=== PATIENT | female | born 1960 | race Caucasian/White ===

== ENCOUNTER → 2020-05-09 07:21 | Outpatient (CLI) | payer BC, SELFPAY ==
--- NOTE | ~2020-05-09 | MM_ITS ---
EXAMINATION: MM screening freddie BI w margaret HISTORY: Screening mammogram TECHNIQUE: Craniocaudal and mediolateral oblique 3-D tomosynthesis images were obtained and synthetic 2-D images were generated. CAD analysis was submitted and interpreted. COMPARISON: 03/28/2019, 03/07/2018, 02/10/2017 bilateral digital screening mammogram examinations BREAST PARENCHYMAL COMPOSITION: The breasts are heterogeneously dense, which may obscure small masses . FINDINGS: There is a biopsy marker on the right; history of prior benign right breast biopsy. Scattered bilateral benign calcifications. Stable circumscribed low-density 5 mm mass is again noted in the lower outer left breast. Stable approximately 9 mm opacity in the upper outer right breast. There is no evidence of suspicious mass, calcification, or architectural distortion to suggest malign zena in either breast. There has been no suspicious interval change. IMPRESSION: 1. No mammographic evidence of malignancy. 2. Recommend routine screening mammography in one year. BI-RADS Category 2: Benign finding(s). Reviewed, dictated and finalized at location B. [employer]
== END ==
PROVIDERS: Visit Provider Family Medicine
DX: Z12.31 Encounter for screening mammogram for malignant neoplasm of breast (principal)
CPT/HCPCS: 77063; 77067

== ENCOUNTER → 2021-07-24 07:12 | Outpatient (CLI) | payer BC, SELFPAY ==
--- NOTE | ~2021-07-24 | MM_ITS ---
EXAMINATION: MM screening freddie BI w magraret HISTORY: Screening mammogram TECHNIQUE: Craniocaudal and mediolateral oblique 3-D tomosynthesis images were obtained and synthetic 2-D images were generated. CAD analysis was submitted and interpreted. COMPARISON: 05/09/2020, 03/28/2019, 03/07/2018 and lateral screening mammogram examinations BREAST PARENCHYMAL COMPOSITION: The breasts are heterogeneously dense, which may obscure small masses . FINDINGS: Surgical clips in the posterior aspect of upper outer right breast; history of prior benign breast biopsy. Scattered bilateral benign calcifications. There is no evidence of suspicious mass, calcification, or architectural distortion to suggest malig rafita in either breast. There has been no suspicious interval change. IMPRESSION: 1. No mammographic evidence of malignancy. 2. Recommend routine screening mammography in one year. BI-RADS Category 2: Benign finding(s). Reviewed, dictated and finalized at location A.
== END ==
PROVIDERS: PCP Family Medicine; Visit Provider Family Medicine
DX: Z12.31 Encounter for screening mammogram for malignant neoplasm of breast (principal)
CPT/HCPCS: 77063; 77067

== ENCOUNTER → 2021-10-09 11:07 | Outpatient (REF) | payer BC, SELFPAY | LOC: ANHLAB 11:07 | PROVIDERS: PCP Family Medicine; Visit Provider Surgery Plastic and Reconstructive Surgery | DX: D23.9 Other benign neoplasm of skin, unspecified (principal) | CPT/HCPCS: 88305 ==

== ENCOUNTER → 2022-07-31 07:08 | Outpatient (CLI) | payer BC, SELFPAY ==
--- NOTE | ~2022-07-31 | MM_ITS ---
EXAMINATION: MM screening freddie BI w margaret HISTORY: Screening TECHNIQUE: Craniocaudal and mediolateral oblique 3-D tomosynthesis images were obtained and synthetic 2-D images were generated. CAD analysis was submitted and interpreted. COMPARISON: Comparison to multiple prior studies sequentially, with oldest reviewed study dated 07/2015. BREAST PARENCHYMAL COMPOSITION: The breasts are heterogeneously dense, which may obscure small masses FINDINGS: There are developing nodular asymmetries scattered in the left breast in the upper outer qu adrant of the right breast. There are scattered punctate calcifications which are likely benign. IMPRESSION: 1. Developing bilateral nodular asymmetries. 2. Additional mammographic views and possible breast ultrasound are recommended. BI-RADS Category 0: Incomplete: Needs additional imaging evaluation. Reviewed, dictated and finalized at location A. IMPRESSION: 1. Developing bilateral nodular asymmetries. 2. Additional mammographic views and possible breast ultrasound are recommended . BI-RADS Category 0: Incomplete: Needs additional imaging evaluation.
== END ==
PROVIDERS: PCP Family Medicine; Visit Provider Family Medicine
DX: Z12.31 Encounter for screening mammogram for malignant neoplasm of breast (principal); R92.8 Other abnormal and inconclusive findings on diagnostic imaging of breast
CPT/HCPCS: 77063; 77067

== ENCOUNTER → 2022-08-28 08:14 | Outpatient (CLI) | payer BC, SELFPAY ==
--- NOTE | ~2022-08-28 | MMUS_ITS ---
EXAMINATION: MM diagnostic freddie BI w margaret, US breast BI complete HISTORY: Developing bilateral nodular asymmetries reported on 07/31/2022 screening mammogram TECHNIQUE: Additional 3-D tomosynthesis images of both breasts were performed and synthetic 2-D image s were generated. CAD analysis was submitted and interpreted. High resolution bilateral complete nancy st ultrasound examination including all 4 quadrants and subareolar areas was performed. COMPARISON: 07/31/2022, 07/20/2021, 05/09/2020 bilateral screening mammogram examinations BREAST PARENCHYMAL COMPOSITION: The breasts are heterogeneously dense, which may obscure small masses . FINDINGS: MAMMOGRAPHIC FINDINGS: There is a biopsy marker on the right; history of prior benign right breast biopsy. Scattered bilateral benign calcifications are noted. 4 mm benign-appearing circumscribed opacity is noted in the posterior lower outer left breast. 9 mm circumscribed opacity is noted in the upper mid right breast on ML and MLO views. Heterogeneous fibrous stroma may obscure additional masses. ULTRASOUND: Right breast: 8:00 4 cm from nipple: 2.5 x 4.9 x 3.4 mm parallel circumscribed sonolucency with through transmissio n consistent with small cyst 10:00 7 cm from nipple: Parallel circumscribed approximately 3 x 10 mm 11:00 5 cm from nipple: 9 x 10 mm hypoechoic mass with posterior shadowing. Ultrasound-guided biopsy is recommended Left breast: 1:00 6 cm from nipple: Approximately 5 x 17 mm sonolucency with through transmission, benign in appea vasiliy 1:00 3 cm from nipple: Similar approximately 3 by 16mm parallel circumscribed sonolucency, without in ternal vascularity or posterior shadowing, benign in appearance 2:00 3 cm from nipple: 4.8 x 3 x 3.4 mm parallel circumscribed hypoechoic area with central fatty tis steven, possibly a benign intramammary lymph node IMPRESSION: 1. 10 mm right hypoechoic mass with posterior shadowing 2. Ultrasound-guided biopsy of right breast 11:00 lesion 5 cm from nipple is recommended BI-RADS category 4, suspicious findings. Dr. Garcia telephoned the report and ultrasound-guided biopsy recommendation of the right 11:00 lesion on 08/20/2022 at 0955 hours to Nurse Luz Reviewed, dictated and finalized at location A. IMPRESSION: 1. 10 mm right hypoechoic mass with posterior shadowing 2. Ultrasound-guided biopsy of right breast 11:00 lesion 5 cm from nipple is re commended BI-RADS category [address], [address] Garcia telephoned the report and ultrasound-guided biopsy recommendation of t vic right 11:00 lesion on 08/20/2022 at 0955 hours to Nurse Escobar
== END ==
PROVIDERS: PCP Family Medicine; Visit Provider Family Medicine
DX: R92.8 Other abnormal and inconclusive findings on diagnostic imaging of breast (principal); N63.10 Unspecified lump in the right breast, unspecified quadrant
CPT/HCPCS: 76641; 77062; 77066; G0279